=== PATIENT | female | born 1980 | race Caucasian/White ===

== ENCOUNTER 2020-08-12 22:40 | Emergency (ER) | payer SELFPAY ==
[~2020-08-12] VITALS: Ht 165.1 cm; Wt 123.8 kg
[2020-08-12 22:45] VITALS: BP 186/81
[2020-08-12] MEDS ORDERED: HYDROcodone/APAP 5/325 MG 1 TAB TAB PO ONE (23:45)
[2020-08-12] MEDS ORDERED: KETOROLAC 30 MG/ML VIAL IM ONE (23:45)
[2020-08-13 00:25] VITALS: BP 169/90
== END 2020-08-13 00:15 | disposition home or self-care (01) ==
LOC: MED 22:40
DX: K08.89 Other specified disorders of teeth and supporting structures (principal)
CPT/HCPCS: 96372; 99283; J1885